=== PATIENT | female | born 1945 | race Caucasian/White ===

== ENCOUNTER 2017-04-17 10:10 | Emergency (ER) | payer MEDICARE, MEDICAID ==
[~2017-04-17 10:10] MED LIST: ABILIFY5 M1 PO; ACYCLOVIR800 MG PO; ASPIR 8181 MG PO; BENICAR HCT 40-1 TAB PO; BENICAR HCT 401 EACH PO; BENICAR40 M1 PO; BENICAR40 MG PO; BENTYL20 MG PO; CALCIUM500 M1 PO; CARAFATE1 G1 PO; COMPAZINE10 M PO; COMPAZINE25 MG/SUPP PR; COUMADIN5 M1 PO; COUMADIN6 MG PO; EXCEDRIN MIGRA1 EAC3 PO; H PO; HYDROCODON-ACE1 EA15 PO; IBUPROFEN800 M1 PO; IBUPROFEN800 MG PO; LEVAQUIN750 M1 PO; MACROBID 100 M100 MG PO; MACROBID100 MG/CAP PO; METOPROLOL SUC100 M1 PO; METOPROLOL SUCC25 M1 PO; MILK OF MA400 MG/5 M PO; NAPROSYN500 MG PO; NICOTINE PATCH1 EAC1 TD; NON; NORCO 10/3251 TA1 PO; NORCO 10/3251 TAB PO; NORCO 5-325 TA1 EACH PO; NORCO 5/325 TAB1 TAB PO; NORCO 7.5/3251 TAB PO; OMEPRAZOLE20 M4 PO; OXYCONTIN20 M1 PO; PERCOCET 10 MG/1 TA1 PO; PERCOCET 5/3251 TAB PO; PRILOSEC40 MG PO; PROAIR HFA8.5 GM IH; PROCARDIA XL90 M1 PO; PROCARDIA XL90 MG PO; PROTONIX40 M1 PO; ROXICODONE5 M1 PO; SENOKOT-S TABLE1 TAB PO; SKELAXIN800 M1 PO; SOMA350 MG; SOMA350 MG PO; TOPROL PO; TOPROL XL100 M1 PO; TOPROL XL100 MG PO; TYLENOL325 M2 PO; VALIUM10 MG PO; XANAX1 M1 PO; ZOFRAN ODT4 MG/UDTAB PO; ZOFRAN4 M2 PO; ZOFRAN8 M1 PO; ZOFRAN8 MG PO; [UNRECOGNIZED DRUG - OTHER] PO
[2017-04-17] MEDS ORDERED: TOPROL XL100 M1 PO (10:23)
[2017-04-17] MEDS ORDERED: NORCO 5-325 TA1 EACH PO (12:15)
== END 2017-04-17 12:24 ==
LOC: EDMED 10:10
DX: S92.351A Displaced fracture of fifth metatarsal bone, right foot, initial encounter for closed fracture (principal); I10 Essential (primary) hypertension; K21.9 Gastro-esophageal reflux disease without esophagitis; M06.9 Rheumatoid arthritis, unspecified; B19.20 Unspecified viral hepatitis C without hepatic coma; Z79.899 Other long term (current) drug therapy; F17.200 Nicotine dependence, unspecified, uncomplicated; X50.1XXA Overexertion from prolonged static or awkward postures, initial encounter; Y92.019 Unspecified place in single-family (private) house as the place of occurrence of the external cause

== ENCOUNTER 2017-04-20 13:38 | Emergency (ER) | payer MEDICARE, MEDICAID | END 2017-04-20 14:40 | disposition T | LOC: EDMED 13:38 | DX: S92.351A Displaced fracture of fifth metatarsal bone, right foot, initial encounter for closed fracture (principal); F17.200 Nicotine dependence, unspecified, uncomplicated; X50.1XXA Overexertion from prolonged static or awkward postures, initial encounter; Y92.009 Unspecified place in unspecified non-institutional (private) residence as the place of occurrence of the external cause ==

== ENCOUNTER 2017-04-22 15:42 | Emergency (ER) | payer MEDICARE, MEDICAID ==
[2017-04-22] MEDS ORDERED: PERCOCET 10-321 EACH PO (17:31)
== END 2017-04-22 17:48 ==
LOC: EDMED 15:42
DX: S92.351A Displaced fracture of fifth metatarsal bone, right foot, initial encounter for closed fracture (principal); I10 Essential (primary) hypertension; M79.604 Pain in right leg; Z88.5 Allergy status to narcotic agent; Z88.2 Allergy status to sulfonamides; X58.XXXA Exposure to other specified factors, initial encounter; Y92.019 Unspecified place in single-family (private) house as the place of occurrence of the external cause
CPT/HCPCS: J1170